=== PATIENT | female | born 1945 | race African-American/Black ===

== ENCOUNTER 2016-11-25 22:16 | Emergency (ER) | payer BC ==
[~2016-11-25] VITALS: Ht 165.1 cm; Wt 63.0 kg
[~2016-11-25 22:16] MED LIST: ALBU90AE IH; ALLO100T PO; ATEN50TA PO; FENO145T19 PO; FLUT1DIS3 IH; NAPR-681 PO; TIOT18CA3 IH
[2016-11-25] MEDS ORDERED: IPRATROPIUM BROMIDE (0.02%) 0.5MG/2.5ML NEB HHN STA (23:22)
[2016-11-25] MEDS ORDERED: ALBUTEROL (0.083%) 2.5MG/3ML NEB HHN STA (23:22)
[2016-11-25 23:50] LABS: HEMATOCRIT 41.6 % (36.0-48.0); HEMOGLOBIN 13.6 g/dL (12.0-16.0); MEAN CORPUSCULAR HEMOGLOBIN 31.1 pg (28.0-32.0); MEAN CORPUSCULAR HGB CONC 32.7 g/dL (31.0-37.0); MEAN CORPUSCULAR VOLUME 95.2 fL (81.0-99.0); PLATELET 199 x1000/uL (130-400); RED BLOOD CELL COUNT 4.37 mill/uL (4.2-5.4); WHITE BLOOD COUNT 13.1 x1000/uL (4.5-11.0)
[2016-11-25 23:56] LABS: CHLORIDE 104 mEq/L (98-107); INDEX HEMOLYSI 1 (1-3); INDEX ICTERIC 1 (1-4); INDEX LIPEMIC 1 (1-3)
[2016-11-26 00:04] LABS: ANION GAP 14; CALCIUM 8.9 mg/dL (8.5-10.1); CARBON DIOXIDE 27 mEq/L (21-32); UREA NITROGEN BLOOD 12 mg/dL (7-21); eGFR > 60 mL/min (>60)
[2016-11-26 00:35] VITALS: BP 130/74
== END 2016-11-26 01:35 | disposition home or self-care (01) ==
LOC: ER 22:17
DX: J44.1 Chronic obstructive pulmonary disease with (acute) exacerbation (principal); J06.9 Acute upper respiratory infection, unspecified; I10 Essential (primary) hypertension; E78.00 Pure hypercholesterolemia, unspecified; Z88.0 Allergy status to penicillin; Z90.89 Acquired absence of other organs; Z98.51 Tubal ligation status; Z79.899 Other long term (current) drug therapy
CPT/HCPCS: 36415; 71010; 80048; 85027; 94640; 99285; J7611

== ENCOUNTER 2017-11-09 13:38 | Inpatient (IN) | payer BC, MEDICARE ==
[~2017-11-09] VITALS: Ht 167.6 cm; Wt 55.5 kg
[~2017-11-09 13:38] MED LIST changes: -FENO145T19 PO; +FENO145T36 PO
[2017-11-09] MEDS ORDERED: IBUPROFEN 400MG TABLET PO ONE (14:15)
[2017-11-09] MEDS ORDERED: ASPIRIN 81MG TABLET PO STA (16:21)
[2017-11-09] MEDS ORDERED: NITROGLYCERIN 0.4MG TABLET SL SL PRN ×2 (16:30→18:45)
[2017-11-09] MEDS ORDERED: LEVOFLOXACIN 750MG PREMIX 150 ML IV ONE (16:30)
[2017-11-09] MEDS ORDERED: SODIUM CHLORIDE 0.9% 1000ML BAG (SEPSIS BOLUS) IV ONE (16:30)
[2017-11-09] MEDS ORDERED: OSELTAMIVIR 75MG CAPSULE PO ONE (16:30)
[2017-11-09 16:53] LABS: BG BASE EXCESS 0.8 mmol/L (-2.0-2.0); BG DEOXYHEMOGLOBIN 6.4 % (0.0-5.0); BG FRACTION INSPIRED OXYGEN 26; BG HCO3 ACT 27.6 mmol/L (22.0-26.0); BG METHEMOGLOBIN 0.2 % (0.0-1.5); BG OXYGEN SATURATION 93.5 % (92.0-98.5); BG OXYHEMOGLOBIN 92.4 % (94.0-97.0); BG PCO2 52.9 mmHg (35.0-45.0); BG PH 7.335 (7.350-7.450); BG PO2 76.4 mmHg (75.0-100.0); BG SAMPLE SITE LEFT RADIAL; BG TOTAL HEMOGLOBIN 14.1 g/dL (12.0-18.0); BG VENT MODE NASAL CANNULA
[2017-11-09 17:05] LABS: BASOPHILS % 0.4 % (0.0-2.0); EOSINOPHILS % 1.2 % (0.0-5.0); HEMOGLOBIN. 13.7 g/dL (12.0-16.0); LYMPHOCYTES % 9.4 % (20.0-50.0); MEAN CORPUSCULAR HEMOGLOBIN 30.4 pg (28.0-32.0); MEAN CORPUSCULAR VOLUME 93.1 fL (81.0-99.0); MEAN PLATELET VOLUME 7.9 fl (7.4-10.4); MONOCYTES % 10.7 % (2.0-8.0); NEUTROPHILS % 78.3 % (40.0-76.0); PLATELET 406 x1000/uL (130-400); RED BLOOD CELL COUNT 4.51 mill/uL (4.2-5.4); RED CELL DISTRIBUTION WIDTH 13.5 % (11.6-14.6)
[2017-11-09 17:08] LABS: CHLORIDE 99 mEq/L (98-107)
[2017-11-09 17:09] LABS: INR 1.2; PARTIAL THROMBOPLASTIN TIME 28.9 sec (23.4-31.0)
[2017-11-09] MEDS ORDERED: ACETAMINOPHEN 325MG TABLET PO PRN (18:45)
[2017-11-09] MEDS ORDERED: DOCUSATE SODIUM 100MG CAPSULE PO PRN (18:45)
[2017-11-09] MEDS ORDERED: CLONIDINE 0.1MG TABLET PO PRN (18:45)
[2017-11-09] MEDS ORDERED: NA PHOS,M-B/NA PHOS,DI-BA ENEMA 118ML PR PRN (18:45)
[2017-11-09] MEDS ORDERED: LORAZEPAM 0.5MG TABLET PO PRN (18:45)
[2017-11-09] MEDS ORDERED: MAGNESIUM/ALUMINUM HYDROXIDE/SIMETHICONE 30ML UDC PO PRN (18:45)
[2017-11-09] MEDS ORDERED: ZOLPIDEM TARTRATE 5MG TABLET PO PRN (18:45)
[2017-11-09] MEDS ORDERED: DIPHENHYDRAMINE 50MG/ML VIAL IV PRN (18:45)
[2017-11-09] MEDS ORDERED: IPRATROPIUM/ALBUTEROL 0.5-3(2.5)MG/3ML NEB INH PRN (18:45)
[2017-11-09] MEDS ORDERED: IOHEXOL-350 100 ML BOTTLE ONE (19:42)
[2017-11-09] MEDS ORDERED: ONDANSETRON HCL 4MG/2ML VIAL IV PRN (19:45)
[2017-11-09 20:10] VITALS: BP 133/60
[2017-11-09] MEDS ORDERED: MORPHINE SULFATE 2 MG/ML CPJ (NOT FOR IM USE) IV ONE (20:45)
[2017-11-09 21:00] VITALS: BP 133/60
[2017-11-09] MEDS: TRAMADOL 50MG TABLET PO PRN (22:00)
[2017-11-09] MEDS: METHYLPREDNISOLONE SOD SUCC 125 MG/2 ML VIAL IV SCH (22:28)
[2017-11-09] MEDS ORDERED: CHOL500010 PO (22:28)
[2017-11-09] MEDS ORDERED: LEVO50TA PO (22:28)
[2017-11-09] MEDS: GUAIFENESIN 200MG/10ML SUGAR FREE UDC PO PRN (22:56)
[2017-11-09] MEDS ORDERED: AZITHROMYCIN 500 MG in SODIUM CHLORIDE 0.9% 250 ML IV SCH (23:00)
[2017-11-09 23:14] LABS: CREATINE KINASE 44 IU/L (26-192)
[2017-11-10] VITALS: BP 104/62
[2017-11-10] MEDS ORDERED: CEFTRIAXONE 1 G PREMIX 50 ML IV SCH
[2017-11-10] MEDS: IPRATROPIUM/ALBUTEROL 0.5-3(2.5)MG/3ML NEB HHN SCH ×6 (00:32→21:50)
[2017-11-10 04:00] VITALS: BP 106/61
[2017-11-10 06:47] LABS: CREATINE KINASE 42 IU/L (26-192)
[2017-11-10 06:49] LABS: CREATINE KINASE MB FRACTION 2.3 ng/mL (0.5-3.6)
[2017-11-10] MEDS: METHYLPREDNISOLONE SOD SUCC 125 MG/2 ML VIAL IV SCH ×2 (06:53→13:25)
[2017-11-10 08:00] VITALS: BP 104/66
[2017-11-10] MEDS: ENOXAPARIN 40MG/0.4ML SYR SUBCUT SCH (08:39)
[2017-11-10] MEDS: FAMOTIDINE 20MG/2ML VIAL IV SCH (08:40)
[2017-11-10] MEDS ORDERED: GUAIFENESIN/DM 600MG/30MG ER TAB 12HR PO SCH (09:00)
[2017-11-10 12:00] VITALS: BP 122/76
[2017-11-10] MEDS: TRAMADOL 50MG TABLET PO PRN (13:24)
[2017-11-10 16:00] VITALS: BP 118/73
[2017-11-10] MEDS ORDERED: IPRATROPIUM/ALBUTEROL 0.5-3(2.5)MG/3ML NEB HHN PRN (17:00)
[2017-11-10] MEDS ORDERED: BUDESONIDE 0.5MG/2ML NEB HHN SCH (17:29)
[2017-11-10] MEDS: GUAIFENESIN 600MG ER TABLET PO SCH (19:03)
[2017-11-10 20:00] VITALS: BP 106/57
[2017-11-10] MEDS ORDERED: SODIUM CHLORIDE 3% FOR INH 15ML VIAL NEB INH SCH (20:00)
[2017-11-10 20:17] LABS: T4 FREE 0.87 ng/dL (0.76-1.46)
[2017-11-10] MEDS ORDERED: ACETYLCYSTEINE 200MG/ML 20% VIAL 4ML PO SCH (21:00)
[2017-11-10] MEDS: ACETYLCYSTEINE 200MG/ML 20% VIAL 4ML INH SCH (21:51)
[2017-11-11] VITALS (7 sets, daily range): BP systolic 97–124; BP diastolic 47–69
[2017-11-11] MEDS: CEFTRIAXONE 1 G PREMIX 50 ML IV SCH (00:36)
[2017-11-11] MEDS: AZITHROMYCIN 500 MG in SODIUM CHLORIDE 0.9% 250 ML IV SCH (00:36)
[2017-11-11] MEDS: IPRATROPIUM/ALBUTEROL 0.5-3(2.5)MG/3ML NEB HHN SCH ×6 (00:47→20:53)
[2017-11-11] MEDS: ACETYLCYSTEINE 200MG/ML 20% VIAL 4ML INH SCH ×6 (00:48→20:54)
[2017-11-11] MEDS: BUDESONIDE 0.5MG/2ML NEB HHN SCH ×3 (04:48→20:55)
[2017-11-11] MEDS: GUAIFENESIN 600MG ER TABLET PO SCH (06:34)
[2017-11-11] MEDS: FAMOTIDINE 20MG/2ML VIAL IV SCH (09:27)
[2017-11-11] MEDS: MORPHINE SULFATE 4 MG/ML CPJ (NOT FOR IM USE) IV PRN ×2 (09:27→16:45)
[2017-11-11] MEDS: ENOXAPARIN 40MG/0.4ML SYR SUBCUT SCH (09:28)
[2017-11-12] MEDS: AZITHROMYCIN 500 MG in SODIUM CHLORIDE 0.9% 250 ML IV SCH ×2
[2017-11-12] MEDS: ACETYLCYSTEINE 200MG/ML 20% VIAL 4ML INH SCH ×5 (00:05→22:25)
[2017-11-12] MEDS: IPRATROPIUM/ALBUTEROL 0.5-3(2.5)MG/3ML NEB HHN SCH ×5 (00:05→22:25)
[2017-11-12] MEDS: CEFTRIAXONE 1 G PREMIX 50 ML IV SCH (02:41)
[2017-11-12 03:53] VITALS: BP 134/72
[2017-11-12] MEDS: MORPHINE SULFATE 4 MG/ML CPJ (NOT FOR IM USE) IV PRN (04:22)
[2017-11-12] MEDS: GUAIFENESIN 600MG ER TABLET PO SCH ×2 (05:39→17:46)
[2017-11-12] MEDS ORDERED: SKIN ADHESIVE 0.7 GM EA TOP ONE (06:27)
[2017-11-12] MEDS ORDERED: BUPIVACAINE HCL/EPINEPHRINE/PF 0.5%/0.0005 10ML ONE (06:27)
[2017-11-12] MEDS ORDERED: NORMAL SALINE 0.9% 10 ML SYR ONE (06:27)
[2017-11-12] MEDS ORDERED: BACITRACIN 50,000 UNITS/VIAL ONE (06:28)
[2017-11-12] MEDS ORDERED: BACITRACIN ZINC 15GM TUBE TOP ONE (06:58)
[2017-11-12] MEDS ORDERED: MIDAZOLAM HCL 2 MG/2 ML VIAL ONE (07:11)
[2017-11-12] MEDS ORDERED: NEOSTIGMINE METHYLSULFATE 1MG/ML 10 ML VIAL ONE (07:11)
[2017-11-12] MEDS ORDERED: FENTANYL CITRATE/PF 50MCG/ML 2ML VIAL ONE (07:11)
[2017-11-12] MEDS ORDERED: ROCURONIUM BROMIDE 10MG/ML VIAL 5ML IV ONE (07:11)
[2017-11-12] MEDS ORDERED: PROPOFOL 200MG/20ML VIAL IV ONE (07:11)
[2017-11-12] MEDS ORDERED: GLYCOPYRROLATE 0.2 MG/ML 2ML VIAL ONE (07:11)
[2017-11-12] MEDS ORDERED: ONDANSETRON HCL 4MG/2ML VIAL ONE (07:12)
[2017-11-12] MEDS ORDERED: LIDOCAINE HCL/PF 1% 10 MG/ML 5ML VIAL ONE (07:12)
[2017-11-12] MEDS ORDERED: SUCCINYLCHOLINE CHLORIDE 200MG/10ML VIAL IV ONE (07:12)
[2017-11-12] MEDS ORDERED: TETRACAINE/BENZOCAINE/BUTAMBEN 20 GM SPRAY MM ONE (07:43)
[2017-11-12] MEDS ORDERED: CEFAZOLIN SODIUM 1000MG/VIAL ONE (07:54)
[2017-11-12 07:58] LABS: *AMPHETAMINES SCREEN URINE NEGATIVE (NEGATIVE); *BARBITURATES SCREEN URINE NEGATIVE (NEGATIVE); *BENZODIAZEPINES SCREEN URINE PRESUMTIVE POSITIVE (NEGATIVE); *COCAINE SCREEN URINE NEGATIVE (NEGATIVE)
[2017-11-12 07:59] LABS: CANNABINOID URINE SCREEN NEGATIVE (NEGATIVE); METHADONE URINE SCREEN NEGATIVE (NEGATIVE); OPIATES URINE SCREEN PRESUMTIVE POSITIVE (NEGATIVE); PHENCYCLIDINE URINE SCREEN NEGATIVE (NEGATIVE)
[2017-11-12 08:24] LABS: ALPHA FETOPROTEIN TUMOR MARKER 2.3 ng/mL (0.0-8.3); CANCER ANTIGEN 125 151.9 U/mL (0.0-38.1)
[2017-11-12] MEDS ORDERED: DEXAMETHASONE 4MG/ML 1ML VIAL ONE (08:40)
[2017-11-12] MEDS ORDERED: VERAPAMIL HCL 2.5 MG/1 ML 2ML VIAL IV ONE (09:26)
[2017-11-12] MEDS ORDERED: VERAPAMIL HCL 2.5 MG/1 ML 2ML VIAL IV NR (09:27)
[2017-11-12] MEDS ORDERED: VERAPAMIL HCL 2.5 MG/1 ML 2ML VIAL IV PRN (09:30)
[2017-11-12] MEDS ORDERED: VERAPAMIL HCL 2.5 MG/1 ML 2ML VIAL IV SCH (09:45)
[2017-11-12] MEDS ORDERED: SODIUM CHLORIDE 0.9% 1,000 ML IV ONE (11:18)
[2017-11-12] MEDS ORDERED: ALBUTEROL (0.5%) 2.5MG/0.5ML NEB HHN ONE (11:30)
[2017-11-12] MEDS ORDERED: ONDANSETRON HCL 4MG/2ML VIAL IV PRN (11:30)
[2017-11-12] MEDS ORDERED: HYDROMORPHONE HCL/PF 2MG/ML CPJ IV PRN (11:30)
[2017-11-12] MEDS ORDERED: MEPERIDINE HCL/PF 25MG/ML CPJ IV PRN (11:30)
[2017-11-12 11:50] LABS: HEMOGLOBIN. 12.4 g/dL (12.0-16.0); MEAN CORPUSCULAR HEMOGLOBIN 30.6 pg (28.0-32.0); MEAN PLATELET VOLUME 8.1 fl (7.4-10.4); PLATELET 319 x1000/uL (130-400); RED BLOOD CELL COUNT 4.04 mill/uL (4.2-5.4); RED CELL DISTRIBUTION WIDTH 13.3 % (11.6-14.6)
[2017-11-12 12:03] VITALS: BP 98/62
[2017-11-12 12:03] LABS: INR 1.1; PROTHROMBIN TIME 11.2 sec (9.4-11.6)
[2017-11-12] MEDS: FAMOTIDINE 20MG/2ML VIAL IV SCH (12:12)
[2017-11-12 12:35] LABS: PLATELET ESTIMATE NORMAL
[2017-11-12] MEDS: BUDESONIDE 0.5MG/2ML NEB HHN SCH (13:14)
[2017-11-12 16:27] VITALS: BP 98/60
[2017-11-12 20:52] VITALS: BP 100/53
[2017-11-13] VITALS: BP 120/58
[2017-11-13] MEDS: AZITHROMYCIN 500 MG in SODIUM CHLORIDE 0.9% 250 ML IV SCH (00:52)
[2017-11-13] MEDS: IPRATROPIUM/ALBUTEROL 0.5-3(2.5)MG/3ML NEB HHN SCH ×6 (01:26→20:42)
[2017-11-13] MEDS: ACETYLCYSTEINE 200MG/ML 20% VIAL 4ML INH SCH ×4 (01:27→15:43)
[2017-11-13] MEDS: MORPHINE SULFATE 4 MG/ML CPJ (NOT FOR IM USE) IV PRN ×3 (01:39→18:21)
[2017-11-13] MEDS: CEFTRIAXONE 1 G PREMIX 50 ML IV SCH (02:16)
[2017-11-13 04:00] VITALS: BP 122/62
[2017-11-13] MEDS: GUAIFENESIN 600MG ER TABLET PO SCH ×2 (07:19→17:34)
[2017-11-13] MEDS: BUDESONIDE 0.5MG/2ML NEB HHN SCH ×2 (07:53→20:43)
[2017-11-13 08:00] VITALS: BP 108/62
[2017-11-13] MEDS: FAMOTIDINE 20MG/2ML VIAL IV SCH (08:16)
[2017-11-13 11:39] VITALS: BP 122/68
[2017-11-13 15:49] VITALS: BP 116/68
[2017-11-13] MEDS: DILTIAZEM HCL 30MG TABLET PO SCH (17:35)
[2017-11-13 20:00] VITALS: BP 128/74
[2017-11-13] MEDS: TRAMADOL 50MG TABLET PO PRN (20:19)
[2017-11-13] MEDS: GUAIFENESIN 200MG/10ML SUGAR FREE UDC PO PRN (21:19)
[2017-11-13] MEDS: AZITHROMYCIN 500 MG in DEXT 5% WATER 250 ML IV SCH (23:43)
[2017-11-14] VITALS: BP 123/74
[2017-11-14] MEDS: ACETYLCYSTEINE 200MG/ML 20% VIAL 4ML INH SCH ×5 (00:11→15:58)
[2017-11-14] MEDS: DILTIAZEM HCL 30MG TABLET PO SCH ×4 (00:12→18:00)
[2017-11-14] MEDS: IPRATROPIUM/ALBUTEROL 0.5-3(2.5)MG/3ML NEB HHN SCH ×6 (00:13→21:23)
[2017-11-14] MEDS: CEFTRIAXONE 1 G PREMIX 50 ML IV SCH (00:53)
[2017-11-14 04:00] VITALS: BP 127/79
[2017-11-14] MEDS: GUAIFENESIN 600MG ER TABLET PO SCH ×2 (05:08→18:51)
[2017-11-14 08:00] VITALS: BP 113/60
[2017-11-14] MEDS: BUDESONIDE 0.5MG/2ML NEB HHN SCH (08:09)
[2017-11-14] MEDS: FAMOTIDINE 20MG/2ML VIAL IV SCH (09:04)
[2017-11-14] MEDS: TRAMADOL 50MG TABLET PO PRN (10:32)
[2017-11-14 12:00] VITALS: BP 118/73
[2017-11-14 16:00] VITALS: BP 114/59
[2017-11-14] MEDS: MORPHINE SULFATE 4 MG/ML CPJ (NOT FOR IM USE) IV PRN (18:50)
[2017-11-14 20:00] VITALS: BP 126/72
[2017-11-14] MEDS ORDERED: LORAZEPAM 0.5MG TABLET PO PRN (20:45)
[2017-11-14] MEDS ORDERED: TRAMADOL 50MG TABLET PO PRN (20:45)
[2017-11-15] VITALS (7 sets, daily range): BP systolic 110–144; BP diastolic 65–96
[2017-11-15] MEDS: ZOLPIDEM TARTRATE 5MG TABLET PO PRN ×2 (00:32→21:28)
[2017-11-15] MEDS: DILTIAZEM HCL 30MG TABLET PO SCH ×4 (00:33→18:20)
[2017-11-15] MEDS: AZITHROMYCIN 500 MG in DEXT 5% WATER 250 ML IV SCH ×2 (00:34→03:08)
[2017-11-15] MEDS: IPRATROPIUM/ALBUTEROL 0.5-3(2.5)MG/3ML NEB HHN SCH ×6 (01:18→19:56)
[2017-11-15] MEDS ORDERED: ACETAMINOPHEN 325MG TABLET PO PRN (01:41)
[2017-11-15] MEDS ORDERED: CLONIDINE 0.1MG TABLET PO PRN (01:42)
[2017-11-15] MEDS ORDERED: DIPHENHYDRAMINE 50MG/ML VIAL IV PRN (01:42)
[2017-11-15] MEDS ORDERED: IPRATROPIUM/ALBUTEROL 0.5-3(2.5)MG/3ML NEB HHN PRN (01:44)
[2017-11-15] MEDS ORDERED: GUAIFENESIN 200MG/10ML SUGAR FREE UDC PO PRN (01:44)
[2017-11-15] MEDS ORDERED: NITROGLYCERIN 0.4MG TABLET SL SL PRN (01:45)
[2017-11-15] MEDS ORDERED: ONDANSETRON HCL 4MG/2ML VIAL IV PRN (01:45)
[2017-11-15] MEDS ORDERED: NA PHOS,M-B/NA PHOS,DI-BA ENEMA 118ML PR PRN (01:45)
[2017-11-15] MEDS ORDERED: MAGNESIUM/ALUMINUM HYDROXIDE/SIMETHICONE 30ML UDC PO PRN (01:45)
[2017-11-15] MEDS ORDERED: DOCUSATE SODIUM 100MG CAPSULE PO PRN (01:45)
[2017-11-15] MEDS: CEFTRIAXONE 1 G PREMIX 50 ML IV SCH (03:07)
[2017-11-15] MEDS: GUAIFENESIN 600MG ER TABLET PO SCH ×2 (06:47→18:20)
[2017-11-15] MEDS: BUDESONIDE 0.5MG/2ML NEB HHN SCH ×2 (09:11→19:56)
[2017-11-15] MEDS: FAMOTIDINE 20MG/2ML VIAL IV SCH (12:30)
[2017-11-15] MEDS: ACETYLCYSTEINE 100MG/ML 10% VIAL 4ML INH SCH (19:56)
[2017-11-15] MEDS: MORPHINE SULFATE 4 MG/ML CPJ (NOT FOR IM USE) IV PRN (20:17)
[2017-11-16] MEDS: DILTIAZEM HCL 30MG TABLET PO SCH ×5 (00:07→18:00)
[2017-11-16] MEDS: IPRATROPIUM/ALBUTEROL 0.5-3(2.5)MG/3ML NEB HHN SCH ×6 (00:11→22:07)
[2017-11-16] MEDS: ACETYLCYSTEINE 100MG/ML 10% VIAL 4ML INH SCH ×4 (00:11→22:08)
[2017-11-16] MEDS: CEFTRIAXONE 1 G PREMIX 50 ML IV SCH (02:27)
[2017-11-16 03:36] VITALS: BP 117/73
[2017-11-16] MEDS: AZITHROMYCIN 500 MG in DEXT 5% WATER 250 ML IV SCH (03:52)
[2017-11-16] MEDS: MORPHINE SULFATE 4 MG/ML CPJ (NOT FOR IM USE) IV PRN ×3 (05:00→15:29)
[2017-11-16] MEDS: GUAIFENESIN 600MG ER TABLET PO SCH ×2 (06:39→18:20)
[2017-11-16] MEDS: FAMOTIDINE 20MG/2ML VIAL IV SCH (08:39)
[2017-11-16 08:41] VITALS: BP 134/79
[2017-11-16] MEDS: BUDESONIDE 0.5MG/2ML NEB HHN SCH ×3 (09:02→22:08)
[2017-11-16 12:00] VITALS: BP 113/78
[2017-11-16 16:00] VITALS: BP 102/70
[2017-11-16 19:55] VITALS: BP 112/76
[2017-11-17] VITALS: BP 100/74
[2017-11-17] MEDS: ACETYLCYSTEINE 100MG/ML 10% VIAL 4ML INH SCH ×2 (01:13→05:00)
[2017-11-17] MEDS: IPRATROPIUM/ALBUTEROL 0.5-3(2.5)MG/3ML NEB HHN SCH ×2 (01:13→05:00)
[2017-11-17] MEDS: CEFTRIAXONE 1 G PREMIX 50 ML IV SCH (03:45)
[2017-11-17 03:54] VITALS: BP 126/73
[2017-11-17] MEDS: AZITHROMYCIN 500 MG in DEXT 5% WATER 250 ML IV SCH (04:34)
[2017-11-17] MEDS: GUAIFENESIN 600MG ER TABLET PO SCH (06:39)
[2017-11-17] MEDS: DILTIAZEM HCL 30MG TABLET PO SCH ×2 (06:39)
[2017-11-17 07:54] VITALS: BP 118/76
[2017-11-17] MEDS: FAMOTIDINE 20MG/2ML VIAL IV SCH (09:41)
[2017-11-17 11:57] VITALS: BP 117/66
[2017-11-17 12:24] VITALS: BP 117/66
== END 2017-11-17 13:25 | disposition home or self-care (01) | DRG 166 ==
LOC: ER 15:23 → 6WST 18:14 → EDBEDREQ 18:22 → EDBEDREQTM 18:22 → SUPCPDRO 18:43 → ENRESERV 19:32
PROVIDERS: ADMIT Internal Medicine; ATTEND Internal Medicine
PROC: 0BB68ZX Excision of Right Lower Lobe Bronchus, Via Natural or Artificial Opening Endoscopic, Diagnostic (ICD-10-PCS; principal; 2017-11-12 07:00)
PROC: 0B968ZX Drainage of Right Lower Lobe Bronchus, Via Natural or Artificial Opening Endoscopic, Diagnostic (ICD-10-PCS; principal; 2017-11-12 07:00)
PROC: 07B74ZX Excision of Thorax Lymphatic, Percutaneous Endoscopic Approach, Diagnostic (ICD-10-PCS; principal; 2017-11-12 07:00)
PROC: 0BB58ZX Excision of Right Middle Lobe Bronchus, Via Natural or Artificial Opening Endoscopic, Diagnostic (ICD-10-PCS; principal; 2017-11-12 07:00)
PROC: 0B958ZX Drainage of Right Middle Lobe Bronchus, Via Natural or Artificial Opening Endoscopic, Diagnostic (ICD-10-PCS; principal; 2017-11-12 07:00)
DX: C34.90 Malignant neoplasm of unspecified part of unspecified bronchus or lung (principal); J96.00 Acute respiratory failure, unspecified whether with hypoxia or hypercapnia; E43 Unspecified severe protein-calorie malnutrition; J18.9 Pneumonia, unspecified organism; C78.1 Secondary malignant neoplasm of mediastinum; I31.3 Pericardial effusion (noninflammatory); J32.9 Chronic sinusitis, unspecified; J44.0 Chronic obstructive pulmonary disease with (acute) lower respiratory infection; J44.1 Chronic obstructive pulmonary disease with (acute) exacerbation; Z68.1 Body mass index [BMI] 19.9 or less, adult; M85.80 Other specified disorders of bone density and structure, unspecified site; M54.10 Radiculopathy, site unspecified; E03.9 Hypothyroidism, unspecified; E78.2 Mixed hyperlipidemia; H40.9 Unspecified glaucoma; I10 Essential (primary) hypertension; I25.10 Atherosclerotic heart disease of native coronary artery without angina pectoris; M10.9 Gout, unspecified; M19.90 Unspecified osteoarthritis, unspecified site; Z60.2 Problems related to living alone; R35.1 Nocturia; J98.09 Other diseases of bronchus, not elsewhere classified; R59.1 Generalized enlarged lymph nodes; Z90.710 Acquired absence of both cervix and uterus; Z87.891 Personal history of nicotine dependence; Z82.49 Family history of ischemic heart disease and other diseases of the circulatory system; Z79.899 Other long term (current) drug therapy; Z90.2 Acquired absence of lung [part of]; Z90.89 Acquired absence of other organs; Z98.51 Tubal ligation status; Z88.0 Allergy status to penicillin; Z98.42 Cataract extraction status, left eye; Z98.41 Cataract extraction status, right eye
CPT/HCPCS: 36415; 36600; 71045; 71270; 73030; 73060; 73706; 80053; 80061; 80305; 82105; 82375; 82378; 82550; 82553; 82805; 83036; 83605; 84439; 84443; 84481; 84484; 85025; 85610; 85730; 86300; 86301; 86304; 86850; 86900; 86920; 87040; 87086; 87804; 88104; 88108; 88305; 93005; 93306; 93970; 94640; 94667; 96374; 96375; 97116; 97161; 97164; 97166; 97168; 97530; 99285; A4216; J0171; J0330; J0456; J0690; J0696; J1100; J1650; J1956; J2250; J2270; J2405; J2704; J2710; J2930; J3010; J3490; J7030; J7040; J7050; J7060; J7608; J7620; J7626; Q9967